=== PATIENT | female | born 1960 | race Caucasian/White ===

== ENCOUNTER 2016-10-22 07:31 | Day surgery (SDC) | payer OTHER ==
[~2016-10-22] VITALS: Ht 152.4 cm; Wt 86.0 kg
[2016-10-22] MEDS ORDERED: PRA20 PO (09:07)
[2016-10-22] MEDS ORDERED: LISI20TA11 PO (09:08)
[2016-10-22] MEDS ORDERED: CITA20TA6 PO (09:08)
[2016-10-22] MEDS ORDERED: PROPOFOL 20 ML ONE (09:08)
[2016-10-22] MEDS ORDERED: FENTAnyl 50 MCG/ML VIAL ONE (09:09)
[2016-10-22] MEDS ORDERED: MIDAZOLAM 1 MG/ML 2 ML INJ ONE (09:09)
[2016-10-22 09:10] VITALS: BP 162/69; PULSE 86; RESP 20
[2016-10-22 10:14] VITALS: BP 133/75; PULSE 75; RESP 20
--- NOTE | 2016-10-22 13:28 | GILP ---
DATE OF PROCEDURE: 10/22/2016 PROCEDURE: Colonoscopy with biopsy. INDICATION: The patient is a 55-year-old female undergoing this procedure for colon cancer screenin g. The risks of the procedure, related and unrelated complications, anesthetic risks, alternatives discussed and informed consent was obtained. DESCRIPTION OF PROCEDURE: The patient was brought to the GI lab, sedated by Dr. Christianson. After opti mum sedation, scope was passed with much ease into rectum, advanced through sigmoid, descending, tra nsverse colon all the way into cecum. Appendiceal orifice identified, peeped into terminal ileum wh ich was normal. The IC valve identified. Rest of the colon appeared normal. There were a few scat tered small mouth diverticula in the left side of the colon, very mild. Retroversion revealed inter nal hemorrhoids. There was edema and a diminutive polyp in the rectum. Surface was successfu lly removed by jumbo biopsy forceps, again hemorrhoids confirmed on antegrade examination. IMPRESSION: 1. Hemorrhoids mild. 2. Diminutive polyp in the rectum, successfully removed by jumbo biopsy forceps. 3. Mild diverticulosis. 4. Negative all the way into the cecum. 5. Clarity was good. 6. Cleanliness was good to adequate. PLAN: Stay on high fiber diet. Dictated By: DAVID ORTIZ/SONI Conf#: [id number] DID#: [id number]
== END 2016-10-22 10:13 | disposition home or self-care (01) ==
LOC: GIL 07:31
PROVIDERS: ATTEND Internal Medicine Gastroenterology
DX: K62.1 Rectal polyp (principal); K64.8 Other hemorrhoids; K57.90 Diverticulosis of intestine, part unspecified, without perforation or abscess without bleeding; I10 Essential (primary) hypertension; E11.9 Type 2 diabetes mellitus without complications
CPT/HCPCS: 45380; 82962; 88305; J2250; J3010; Z7610

== ENCOUNTER 2016-12-16 07:30 | Inpatient (IN) | payer OTHER ==
[2016-12-13 15:54] VITALS: Ht 149.9 cm; Wt 88.7 kg
[2016-12-16] VITALS (45 sets, daily range): BP systolic 97–135; BP diastolic 55–71; PULSE 66–113; RESP 12–18
[~2016-12-16] VITALS: Ht 149.9 cm; Wt 88.7 kg
[~2016-12-16 07:30] MED LIST: ACETAMINOPHEN 1000 MG/100 ML IVPB ONE; CITA20TA6 PO; LISI20TA11 PO; PRA20 PO
[2016-12-16] MEDS ORDERED: CEFAZOLIN 2 GM/50 ML (PMX) 50 ML IVPB SCH ×2 (08:00→16:30)
[2016-12-16] MEDS ORDERED: SOD CHLORIDE 0.9% 1,000 ML IV SCH (08:00)
[2016-12-16] MEDS ORDERED: LIDOCAINE 2% (SDV) 5 ML INJ ONE (13:28)
[2016-12-16] MEDS ORDERED: MIDAZOLAM 1 MG/ML 2 ML INJ ONE (13:28)
[2016-12-16] MEDS ORDERED: PROPOFOL 20 ML ONE ×2 (13:28→15:17)
[2016-12-16] MEDS ORDERED: CEFAZOLIN 1 GM INJ ONE (13:28)
[2016-12-16] MEDS ORDERED: SUCCINYLCHOLINE CHLORIDE 100 MG/5 ML SYG IV ONE (13:28)
[2016-12-16] MEDS ORDERED: FENTAnyl 50 MCG/ML VIAL ONE (13:28)
[2016-12-16 13:32] LABS: CALCIUM 9.4 mg/dl (8.4-10.2); CREATININE 0.46 mg/dl (0.44-1.00)
[2016-12-16] MEDS ORDERED: TRAZ50TA18 PO (13:32)
[2016-12-16] MEDS ORDERED: ERGO500037 PO (13:32)
[2016-12-16] MEDS ORDERED: ASPI81TA50 PO (13:32)
[2016-12-16] MEDS ORDERED: ZOLP5TAB6 PO (13:32)
[2016-12-16] MEDS ORDERED: METOCLOPRAMIDE 10 MG INJ ONE (14:24)
[2016-12-16] MEDS ORDERED: DEXAMETHASONE 4 MG/ML 1 ML INJ ONE (14:24)
[2016-12-16] MEDS ORDERED: ONDANSETRON 4 MG INJ ONE (14:24)
[2016-12-16] MEDS ORDERED: EPHEDrine SULFATE 50 MG/5 ML SYG ONE (14:56)
[2016-12-16] MEDS ORDERED: HYDROmorphONE 2 MG/ML SYG ONE (14:58)
[2016-12-16] MEDS ORDERED: FAMOTIDINE 20 MG INJ ONE (15:07)
[2016-12-16] MEDS ORDERED: BUPIVACAINE 0.25% (MPF) 30 ML INJ ONE (15:09)
[2016-12-16] MEDS ORDERED: BUPIVACAINE 0.25% (MPF) 30 ML INJ INJ ONE (15:10)
[2016-12-16] MEDS ORDERED: METOPROLOL 5 MG INJ ONE (15:16)
[2016-12-16] MEDS ORDERED: PROCHLORPERAZINE 10 MG INJ IV PRN (15:30)
[2016-12-16] MEDS ORDERED: LABETALOL HCL 20MG INJ IV PRN (15:30)
[2016-12-16] MEDS ORDERED: HYDROmorphONE (0.2 MG/ML) 10ML SYG IV PRN ×2 (15:30)
[2016-12-16] MEDS ORDERED: ONDANSETRON 4 MG INJ IV PRN ×2 (15:30→22:00)
[2016-12-16] MEDS ORDERED: DIPHENHYDRAMINE 50 MG INJ IV PRN (15:30)
[2016-12-16] MEDS ORDERED: hydrALAzine 20 MG INJ IV PRN ×2 (15:30→17:00)
[2016-12-16] MEDS ORDERED: MEPERIDINE 25 MG INJ IV PRN (15:30)
[2016-12-16] MEDS ORDERED: FENTAnyl 50 MCG/ML VIAL IV PRN (15:30)
[2016-12-16] MEDS: LACTATED RINGER'S 1,000 ML IV SCH ×2 (16:01→21:33)
[2016-12-16] MEDS ORDERED: morphine 2 MG INJ IV PRN (16:30)
--- NOTE | 2016-12-16 16:36 | OPR ---
DATE OF OPERATION: 12/16/2016 INDICATION: This is a 56-year-old female with a history of hyperparathyroidism was found to have on imaging a left lower parathyroid adenoma. She requests surgical excision of parathyroid adenoma. Risks, alternatives, benefits, and personnel were discussed with the patient. Patient expressed und erstanding and consents to the operation. PREOPERATIVE DIAGNOSIS: Hyperparathyroidism. POSTOPERATIVE DIAGNOSIS: Hyperparathyroidism. OPERATION PERFORMED: Left lower parathyroidectomy. SURGEON: Earle Story MD SPECIMEN: Left lower parathyroid. COMPLICATIONS: None. ANESTHESIA: General. PROCEDURE: The patient was taken to the OR and prepped and draped in the usual sterile fashion. Pickard rgical timeout was performed. IV antibiotics were given. Collar incision is made with a 15 blade. Dissection cautery was carried through the platysma. Strap muscles are split in the midline. Left middle thyroidal vein is ligated with handheld LigaSure. The left inferior pole was mobilized. Le ft lower parathyroid gland is identified. The pedicle is divided after ligating with 3-0 silk. Thi s is sent for specimen as intraoperative frozen, which came back as hypercellular parathyroid. Hemo stasis was achieved. The neck incision was irrigated with Valsalva maneuver 40 cm of water. There was no evidence of further bleeding. The strap muscles were reapproximated in the midline with inte rrupted 3-0 Vicryls. Platysma muscle is reapproximated with interrupted 3-0 Vicryl. Skin was close d using 3-0 Vicryl and running 4-0 Monocryl. Local anesthesia was injected. Dry dressings were aviva lied. Dictated By: EARLE KIDD/SONI Conf#: [id number] DID#: [id number]
[2016-12-16 16:53] LABS: ADD SCAN DIFF NO
[2016-12-16 16:54] LABS: BASOPHILS % 0.4 % (0.0-2.0); EOSINOPHILS # 0.1 10^3/ul (0.0-0.5); EOSINOPHILS % 1.3 % (0.0-7.0); HEMATOCRIT 39.1 % (37.0-47.0); HEMOGLOBIN 13.3 g/dl (12.0-16.0); LYMPHOCYTES # 1.8 10^3/ul (0.8-2.9); MEAN CORPUSCULAR HEMOGLOBIN 31.3 pg (29.0-33.0); MEAN PLATELET VOLUME 10.2 fl (7.4-10.4); MONOCYTE # 0.2 10^3/ul (0.3-0.9); MONOCYTES % 2.2 % (0.0-11.0); NEUTROPHIL # 5.6 10^3/ul (1.6-7.5); NEUTROPHILS % 72.6 % (39.0-77.0); PLATELET COUNT 167 10^3/UL (140-415); RED BLOOD COUNT 4.25 10^6/ul (4.20-5.40); RED CELL DISTRIBUTION WIDTH 11.6 % (11.5-14.5); WHITE BLOOD COUNT 7.7 10^3/ul (4.8-10.8)
[2016-12-16 17:06] LABS: ALBUMIN 3.6 g/dl (3.3-4.9)
[2016-12-16 17:09] LABS: BILIRUBIN,INDIRECT 0.1 mg/dl (0-1.1); BILIRUBIN,TOTAL 0.1 mg/dl (0.2-1.3)
[2016-12-16 17:10] LABS: ALBUMIN/GLOBULIN RATIO 1.33; TOTAL PROTEIN 6.3 g/dl (6.1-8.1)
[2016-12-16 17:12] LABS: CALCIUM 9.2 mg/dl (8.4-10.2); CREATININE 0.48 mg/dl (0.44-1.00); POTASSIUM 4.1 mmol/L (3.5-5.1)
[2016-12-16] MEDS ORDERED: GLUCOSE GEL 15 GRAM TUBE BUCCAL PRN (17:30)
[2016-12-16] MEDS ORDERED: GLUCOSE GEL 15 GRAM TUBE PO PRN ×2 (17:30)
[2016-12-16] MEDS ORDERED: GLUCAGON 1 MG INJ IM PRN (17:30)
[2016-12-16] MEDS ORDERED: DEXTROSE 50% 50 ML SYRINGE IV PRN ×2 (17:30)
--- NOTE | 2016-12-16 17:37 | HP ---
DATE OF ADMISSION: 12/16/2016 HISTORY OF PRESENT ILLNESS: The patient is a 56-year-old female with past medical history positive for hypertension, diet-controlled diabetes mellitus type 2, dyslipidemia, obesity. Patient also wit h history of hyperparathyroidism. Was found to have a left lower parathyroid adenoma on imaging roxana dies. Patient requests surgical incision of parathyroid adenoma. Patient was evaluated by Dr. Story in general surgery consultation. Patient was brought to the hospital and underwent left lower parat hyroidectomy. Postoperatively, patient experienced significant pain, and patient will be admitted f or further evaluation and management. PAST MEDICAL HISTORY: Positive for obesity, lower back pain, hyperthyroidism, hypertension, diabet es mellitus, dyslipidemia. PAST SURGICAL HISTORY: Patient denies having any surgeries in the past. FAMILY HISTORY: Positive for hypertension in patient's mother. SOCIAL HISTORY: Patient lives at home with her family. Patient denies any tobacco use. Denies any illicit drug use. Denies any alcohol use. ALLERGIES: NO KNOWN ALLERGIES. MEDICATIONS ON ADMISSION: 1. Aspirin. 2. Escitalopram. 3. Vitamin D. 4. Lisinopril. 5. Trazodone. 6. Ambien. 7. Pravastatin. REVIEW OF SYSTEMS: A 12-point review of systems is negative unless what mentioned in HPI. PHYSICAL ASSESSMENT GENERAL: Well-developed, obese female, currently lethargic but arousable. Patient is alert and evangelina ented to name and situation. VITAL SIGNS: Temperature is 97.9, pulse is 92, blood pressure 118/68, respiratory rate 17, oxygen s aturation is 96% on 8 liters mask. HEENT: Head is atraumatic, normocephalic. Pupils equal, round, and reactive to light and accommoda tion. Oral mucosa is pink and moist. NECK: Status post surgery with dry, clean, intact dressing at the base of the neck. CHEST: Lungs clear bilaterally. There is no rhonchi, wheezes, rales noted. CARDIOVASCULAR: Normal S1, S2. No murmurs, gallops, clicks, rubs noted. ABDOMEN: Protuberant, obese. Soft, nondistended, nontender. Bowel sounds present. No guarding, n o rebound tenderness. EXTREMITIES: There is no edema, clubbing, cyanosis. Pulses equal bilaterally 2+. SKIN: No rash, petechiae noted. NEUROLOGIC: Patient is awake, alert, and oriented to name and situation. Moves all extremities. LABORATORY DATA: Chemistry: Sodium is 142, potassium 4.0, chloride 108, carbon dioxide 25, anion g ap 15, BUN is 15, creatinine 0.46, glucose 73. Calcium is 9.4. CBC prior to surgery: White blood cell count was 5.5, hemoglobin is 13.2, hematocrit 39.1, platelets 204. IMAGING: Chest x-ray unremarkable examination. Chest x-ray was mild aortic tortuosity and no acute process, no significant change. ASSESSMENT AND PLAN: 1. Hyperparathyroidism, status post left lower partial thyroidectomy. We are going to admit alberto t to medical/surgical floor. Continue Zofran p.r.n. for nausea and morphine and Tylenol p.r.n. for pain. Monitor calcium level. Continue IV fluids. CBC and BMP tomorrow. Continue sequential compr ession device for deep venous thrombosis prophylaxis. 2. Hypertension. Continue to monitor blood pressure. Can resume patient on lisinopril. Continue hydralazine. p.r.n. for systolic blood pressure above 170. 3. Diabetes mellitus, diet controlled. Will continue to monitor blood sugar, with NovoLog mild sli ding scale coverage. Continue Pravastatin for peptic ulcer disease prophylaxis. Further recommenda tions based on clinical course. Plan of care discussed with Dr. De Leon. Dictated By: NATALIE MCKEON SHELL PRESS OPERATOR for NANDA DE LEON MD SR/NTS Conf#: [id number] DID#: [id number]
[2016-12-16] MEDS: INSULIN ASPART [NOVOLOG] 3 ML PEN SC SCH ×2 (18:00→21:00)
[2016-12-16] MEDS: CEFAZOLIN 2 GM/50 ML (PMX) 50 ML IVPB SCH (21:59)
[2016-12-17] MEDS: HYDROCODONE/APAP (5/325) TAB PO PRN ×2 (00:44→08:26)
[2016-12-17 00:45] VITALS: BP 94/52; PULSE 70; RESP 18
[2016-12-17] MEDS ORDERED: ACCUCHECK XX SCH (02:00)
[2016-12-17] MEDS: LACTATED RINGER'S 1,000 ML IV SCH ×2 (02:01→12:04)
[2016-12-17 05:13] LABS: ADD SCAN DIFF NO
[2016-12-17 05:21] LABS: BASOPHILS % 0.1 % (0.0-2.0); HEMATOCRIT 38.3 % (37.0-47.0); HEMOGLOBIN 12.7 g/dl (12.0-16.0); LYMPHOCYTES % 13.9 % (15.0-51.0); MEAN CORPUSCULAR HEMOGLOBIN 30.5 pg (29.0-33.0); MEAN CORPUSCULAR HGB CONC 33.2 g/dl (32.0-37.0); MEAN CORPUSCULAR VOLUME 92.1 fl (82.0-101.0); MEAN PLATELET VOLUME 10.5 fl (7.4-10.4); MONOCYTE # 0.4 10^3/ul (0.3-0.9); MONOCYTES % 5.4 % (0.0-11.0); NEUTROPHIL # 5.5 10^3/ul (1.6-7.5); NEUTROPHILS % 80.2 % (39.0-77.0); PLATELET COUNT 170 10^3/UL (140-415); RED BLOOD COUNT 4.16 10^6/ul (4.20-5.40); RED CELL DISTRIBUTION WIDTH 11.7 % (11.5-14.5); WHITE BLOOD COUNT 6.8 10^3/ul (4.8-10.8)
[2016-12-17 05:35] LABS: POTASSIUM 5.2 mmol/L (3.5-5.1)
[2016-12-17 05:41] LABS: ALBUMIN 3.4 g/dl (3.3-4.9)
[2016-12-17 05:42] LABS: ALBUMIN/GLOBULIN RATIO 1.36; BILIRUBIN,INDIRECT 0.2 mg/dl (0-1.1); BILIRUBIN,TOTAL 0.2 mg/dl (0.2-1.3); CALCIUM 8.7 mg/dl (8.4-10.2); CREATININE 0.49 mg/dl (0.44-1.00); TOTAL PROTEIN 5.9 g/dl (6.1-8.1)
[2016-12-17] MEDS: CEFAZOLIN 2 GM/50 ML (PMX) 50 ML IVPB SCH ×2 (06:02→14:05)
[2016-12-17] MEDS: INSULIN ASPART [NOVOLOG] 3 ML PEN SC SCH ×3 (07:50→17:23)
[2016-12-17] MEDS ORDERED: HYDROCODONE/APAP (5/325) TAB NGT PRN (08:00)
[2016-12-17] MEDS: ATORVASTATIN 10 MG TAB PO SCH ×2 (08:23→08:29)
[2016-12-17 08:49] VITALS: BP 102/53; RESP 18
[2016-12-17] MEDS ORDERED: LISINOPRIL 20 MG TAB PO SCH (09:00)
[2016-12-17] MEDS ORDERED: CITALOPRAM 20 MG TAB PO SCH (13:30)
[2016-12-17] MEDS ORDERED: ACETAMINOPHEN 325 MG TAB PO PRN (13:30)
--- NOTE | 2016-12-17 17:17 | PN ---
Date/Time of Note Date/Time of Note DATE: 12/17/16 TIME: 17:16 Assessment/Plan VTE Prophylaxis VTE Prophylaxis Intervention: SCD's Lines/Catheters IV Catheter Type (from Nrs): Peripheral IV Urinary Cath still in place: No Assessment/Plan Chief Complaint/Hosp Course s/p left lower parathyroidectomy Problems: Assessment/Plan dc home Subjective 24 Hr Interval Summary Free Text/Dictation doing well, voice normal, swallowing and breathing normal Exam/Review of Systems Vital Signs Vitals Vital Signs Date Time Temp Pulse Resp B/P Pulse Ox O2 Delivery O2 Flow Rate FiO2 12/17/16 08:49 98.4 64 18 102/53 95 12/17/16 00:45 Nasal Cannula 1.0 Intake and Output 12/16/16 12/16/16 12/17/16 15:00 23:00 07:00 Intake Total 850 ml 1070 ml Output Total 15 ml 900 ml Balance 835 ml 170 ml Exam clean intact Results Result Diagram: 12/17/16 0440 12/17/16 0440 Results 24 hrs Laboratory Tests Test 12/16/16 21:32 12/17/16 04:40 12/17/16 08:18 12/17/16 12:03 Bedside Glucose 167 102 128 Alanine Aminotransferase (ALT/SGPT) 28 Albumin 3.4 Albumin/Globulin Ratio 1.36 Alkaline Phosphatase 53 Anion Gap 13 Aspartate Amino Transf (AST/SGOT) 22 Basophils # 0.0 Basophils % 0.1 Blood Urea Nitrogen 12 Calcium Level 8.7 Carbon Dioxide Level 28 Chloride Level 107 Creatinine 0.49 Direct Bilirubin 0.00 Eosinophils # 0.0 Eosinophils % 0.0 Globulin 2.50 Glucose Level 112 Hematocrit 38.3 Hemoglobin 12.7 Indirect Bilirubin 0.2 Lymphocytes # 1.0 Lymphocytes % 13.9 L Mean Corpuscular Hemoglobin 30.5 Mean Corpuscular Hemoglobin Concent 33.2 Mean Corpuscular Volume 92.1 Mean Platelet Volume 10.5 H Monocytes # 0.4 Monocytes % 5.4 Neutrophils # 5.5 Neutrophils % 80.2 H Nucleated Red Blood Cells # 0.0 Nucleated Red Blood Cells % 0.0 Parathyroid Hormone (Intact) Platelet Count 170 Potassium Level 5.2 H Red Blood Count 4.16 L Red Cell Distribution Width 11.7 Sodium Level 143 Total Bilirubin 0.2 Total Protein 5.9 L White Blood Count 6.8 Medications Medications Current Medications Morphine Sulfate (morphine) 2 mg Q2H PRN IV PAIN LEVEL 6-10; Start 12/16/16 at 16:30 Acetaminophen/ Hydrocodone Bitart 1 tab 1 tab Q6H PRN PO PAIN LEVEL 6-10 Last administered on 12/17/16 08:26; Admin Dose 1 TAB; Start 12/16/16 at 16:30 Lactated Ringer's (Lr) 1,000 ml @ 100 mls/hr Q10H IV Last administered on 12/17 12:04; Admin Dose 100 MLS/HR; Start 12/16/16 at 16:01 Lisinopril (Zestril) 20 mg DAILY PO ; Start 12/17/16 at 09:00 Atorvastatin Calcium (Lipitor) 10 mg DAILY PO ; Start 12/17/16 at 09:00; Stop at 21:00 Diagnostic Test (Pha) (Accucheck) 1 ea 02 XX ; Start 12/17/16 at 02:00 Hydralazine HCl (Apresoline) 10 mg Q6H PRN IV SBP>170; Start 12/16/16 at 17:00 Acetaminophen/ Hydrocodone Bitart ([place] (5/325)) 1 tab Q4H PRN NGT PAIN LEVEL 1-5; Start 12/17/16 at 08:00 Miscellaneous Information 1 ea NOTE XX ; Start 12/16/16 at 17:30 Glucose (Glutose) 15 gm Q15M PRN PO DECREASED GLUCOSE; Start 12/16/16 at 17:30 Glucose (Glutose) 22.5 gm Q15M PRN PO DECREASED GLUCOSE; Start 12/16/16 at 17: 30 Dextrose (D50w Syringe) 25 ml Q15M PRN IV DECREASED GLUCOSE; Start 12/16/16 at 17:30 Dextrose (D50w Syringe) 50 ml Q15M PRN IV DECREASED GLUCOSE; Start 12/16/16 at 17:30 Glucagon (Glucagen) 1 mg Q15M PRN IM DECREASED GLUCOSE; Start 12/16/16 at 17:30 Glucose 15 gm 15 gm Q15M PRN BUCCAL DECREASED GLUCOSE; Start 12/16/16 at 17:30 Cefazolin Sodium/ Dextrose (Ancef 2 Gm/50 ml (Pmx)) 50 ml @ 100 mls/hr Q8H IVPB Last administered on 12/17/16 14:05; Admin Dose 100 MLS/HR; Start at 22:30 Ondansetron HCl (Zofran Inj) 4 mg Q4H PRN IV NAUSEA AND/OR VOMITING Last administered on 12/16/16 21:58; Admin Dose 4 MG; Start 12/16/16 at 22:00 Acetaminophen (Tylenol Tab) 650 mg Q6H PRN PO PAIN AND OR ELEVATED TEMP Last administered on 12/17/16 14:04; Admin Dose 650 MG; Start 12/17/16 at 13:30 Atorvastatin Calcium (Lipitor) 10 mg HS PO ; Start 12/17/16 at 21:00 Citalopram Hydrobromide (Celexa) 20 mg DAILY PO Last administered on 12/17/16 14:04; Admin Dose 20 MG; Start 12/17/16 at 13:30 Remedios HARRINGTON Dec 17, 2016 17:17
[2016-12-17] MEDS ORDERED: NA POLYST SULFON 15 GM/60 ML BTL PO ONE (18:00)
[2016-12-17] MEDS ORDERED: HYDR-3498 NGT (19:02)
[2016-12-17] MEDS ORDERED: ATORVASTATIN 10 MG TAB PO SCH (21:00)
== END 2016-12-17 20:10 | disposition home or self-care (01) | DRG 627 ==
LOC: INTOOBSV 11:34 → REC 11:34 → MS1 20:20 → OBSVTOIN 12-17 13:04
PROVIDERS: ADMIT Internal Medicine; ATTEND Surgery
PROC: 0GBP0ZZ Excision of Left Inferior Parathyroid Gland, Open Approach (ICD-10-PCS; principal; 2016-12-16 07:30)
DX: D35.1 Benign neoplasm of parathyroid gland (principal); I10 Essential (primary) hypertension; E21.3 Hyperparathyroidism, unspecified; E78.5 Hyperlipidemia, unspecified; E11.9 Type 2 diabetes mellitus without complications; F32.9 Major depressive disorder, single episode, unspecified; F41.9 Anxiety disorder, unspecified; E66.9 Obesity, unspecified; Z68.39 Body mass index [BMI] 39.0-39.9, adult; Z79.82 Long term (current) use of aspirin
CPT/HCPCS: 80048; 80053; 82962; 83970; 85025; 88305; 88331; 99217; G0378; J0131; J0330; J0690; J1100; J1170; J1815; J2250; J2405; J2765; J3010; J7030; J7120

== ENCOUNTER 2017-01-23 05:53 | Observation (INO) | payer OTHER ==
[2017-01-22 09:36] VITALS: BMI 48.0
[~2017-01-23] VITALS: Ht 134.6 cm; Wt 87.8 kg
[2017-01-23] VITALS (25 sets, daily range): BP systolic 100–140; BP diastolic 47–76; PULSE 63–82; RESP 11–22; Ht 134.6 cm; Wt 87.8 kg
[~2017-01-23 05:53] MED LIST changes: -ACETAMINOPHEN 1000 MG/100 ML IVPB ONE; +ASPI81TA50 PO; +CEFAZOLIN 2 GM/50 ML (PMX) 50 ML IVPB ONE; +ERGO500037 PO; +HYDR-3498 NGT; -PRA20 PO; +PRAV20TA2 PO; +TRAZ50TA18 PO; +ZOLP5TAB7 PO
--- NOTE | 2017-01-23 06:36 | PREOPHP ---
DATE OF ADMISSION: 01/23/2017 The patient is coming on the for a surgical procedure. HISTORY OF PRESENT ILLNESS: This is a 56-year-old female, 6, para 6, abortions 0. This pat ient had a history of a tubal ligation and weight loss of 100 pounds, dieting on her own and she als o has abdominal sagging to her thighs with frequent yeast infections. She suffers also from inconti nence and mixed incontinence with Valsalva maneuver and urgency. The patient has been having pelvic pressure to urinate and to have a bowel movement. She also has a hard time with constipation. She loses urine constantly. She wears a pad on a daily basis and she is constantly trying to move her bowels daily due to constipation. She is not sexually active. At this time, the patient has been advised for a vaginal A and P repair with a sling and graft. PAST MEDICAL HISTORY: She has a history of uncontrolled diabetes with diet and hypertension. ALLERGIES: SHE HAS NO ALLERGIES. MEDICATIONS The patient is on: 1. Lisinopril 2. Pravastatin. 3. Citalopram. 4. Zolpidem. FAMILY HISTORY: Unremarkable. REVIEW OF SYSTEMS: Negative for cardiovascular disease except for hypertension that is controlled. No history of lung disease. No history of GI disease, except for constipation. No urological prob lems. No neurological problems, orthopedic problems. She is a diabetic, diet-controlled, and she h as a thyroid problem that has not been treated so far. PHYSICAL EXAMINATION GENERAL APPEARANCE: Good. VITAL SIGNS: Stable. Blood pressure 140/80, pulse is 80, she is afebrile, she weighs 193. HEAD AND NECK: Normal. BREASTS: Soft, nontender; no masses. CHEST: Clear. HEART: Normal sinus rhythm. ABDOMEN: Soft, nontender. No masses. Excessive skin and fat tissue up to her thighs. She will ne ed an abdominal lipectomy after this procedure. PELVIC: Atrophic and vaginal lining, uterus normal size and non-prolapsed. The bladder and rectum prolapsed grade III to IV. EXTREMITIES: Normal. DIAGNOSES 1. 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 2. Mixed incontinence. 3. Large rectocele. 4. Constipation. 5. Diet-controlled diabetes. 6. Controlled hypertension. 7. Thyroid disease ____. 8. Briana-abdominal mass, large fat/skin protrusion. PLAN: The patient has been advised for an A and P repair, sling and a graft. She has been explaine d on the procedure. She has PMS advised of the possible risks and possible complications of the pro cedure with her alternatives and options. Written information was provided. She had no more questi ons and agreed to go ahead with the procedure with full understanding and no more questions. Also, information was given about the graft and the sling that were going to be used on her and she unders tood all of the possible complications and she agreed to have the procedure, and she decided that th is is the best approach for her. She had no more questions and agreed to go ahead with the procedur e. Dictated By: AKBAR BELLA/SONI Conf#: [id number] DID#: [id number]
[2017-01-23] MEDS ORDERED: LIDOCAINE 1%/EPI (MDV) 20 ML INJ ONE (06:48)
[2017-01-23] MEDS ORDERED: THROMBIN 5000 UNIT VIAL ONE (06:49)
[2017-01-23] MEDS ORDERED: ROCURONIUM 50 MG INJ ONE (07:00)
[2017-01-23] MEDS ORDERED: SUCCINYLCHOLINE CHLORIDE 100 MG/5 ML SYG IV ONE (07:00)
[2017-01-23] MEDS ORDERED: PROPOFOL 20 ML ONE (07:00)
[2017-01-23] MEDS ORDERED: FENTAnyl 50 MCG/ML VIAL ONE (07:01)
[2017-01-23] MEDS ORDERED: ONDANSETRON 4 MG INJ ONE (07:01)
[2017-01-23] MEDS ORDERED: CEFAZOLIN 1 GM INJ ONE (07:01)
[2017-01-23] MEDS ORDERED: METOCLOPRAMIDE 10 MG INJ ONE (07:01)
[2017-01-23] MEDS ORDERED: METHYLENE BLUE 1% 10 ML INJ ONE (07:03)
[2017-01-23] MEDS ORDERED: LABETALOL HCL 20MG INJ IV PRN (08:00)
[2017-01-23] MEDS ORDERED: OXYCODONE/ACETAMINOPHEN (5/325) TAB PO PRN ×2 (08:00)
[2017-01-23] MEDS ORDERED: hydrALAzine 20 MG INJ IV PRN (08:00)
[2017-01-23] MEDS ORDERED: HYDROmorphONE (0.2 MG/ML) 10ML SYG IV PRN ×3 (08:00)
[2017-01-23] MEDS ORDERED: MEPERIDINE 25 MG INJ IV PRN (08:00)
[2017-01-23] MEDS ORDERED: FENTAnyl 50 MCG/ML VIAL IV PRN ×2 (08:00)
[2017-01-23] MEDS ORDERED: ONDANSETRON 4 MG INJ IV PRN ×2 (08:00)
[2017-01-23] MEDS ORDERED: HYDROmorphONE 0.2 MG/ML PCA IV SCH ×3 (08:00→16:30)
[2017-01-23] MEDS ORDERED: DIPHENHYDRAMINE 50 MG INJ IV PRN (08:00)
[2017-01-23] MEDS ORDERED: NALOXONE (0.4 MG/ML) INJ IV PRN (08:00)
[2017-01-23] MEDS ORDERED: LIDOCAINE 1%/EPI 30 ML INJ ONE (09:15)
[2017-01-23] MEDS: LACTATED RINGER'S 1,000 ML IV SCH ×3 (09:55→18:37)
[2017-01-23] MEDS ORDERED: ZOLPIDEM 5 MG TAB PO PRN (10:00)
[2017-01-23] MEDS ORDERED: HYDROCODONE/APAP (5/325) TAB PO PRN ×2 (10:00)
[2017-01-23] MEDS ORDERED: HYDROmorphONE 1 MG/ML SYG IV PRN (10:00)
[2017-01-23] MEDS ORDERED: BISACODYL (EC) 5 MG TAB PO PRN (10:00)
[2017-01-23] MEDS ORDERED: DIPHENHYDRAMINE 50 MG CAP PO PRN (10:00)
--- NOTE | 2017-01-23 10:15 | OPR ---
Date/Time of Note Date/Time of Note DATE: 01/23/17 TIME: 10:12 Operative Report Procedure Date: Jan 23, 2017 Preoperative Diagnosis LARGE CYSTOURETHROCELE GRADE 4 LARGE RECTOCELE MIXED INCONTINENCE HYPERTENSION DIET CONTROL DIABETES Postoperative Diagnosis SAME Surgeon: AKBAR ROMO MD facility assistant: ASHVIN TAN Anesthesia: general Anesthesiologist: KAR KEATING MD Estimated Blood Loss: 0 - 10 ml's Complications: None Pt Condition Post Procedure: stable Disposition: PACU AKBAR ROMO MD Jan 23, 2017 10:14
--- NOTE | 2017-01-23 11:08 | OPR ---
DATE OF OPERATION: 01/23/2017 PREOPERATIVE DIAGNOSES: 1. Large cystourethrocele, grade 4. 2. Mixed incontinence. 3. Large rectocele. 4. Constipation. 5. Diet-controlled diabetes. 6. Hypertension. POSTOPERATIVE DIAGNOSES: 1. Large cystourethrocele, grade 4. 2. Mixed incontinence. 3. Large rectocele. 4. Constipation. 5. Diet-controlled diabetes. 6. Hypertension. PROCEDURE: Anterior and posterior colporrhaphy, Obtryx sling, ACell and Xenform graft. SURGEON: Akbar Justice MD APPLIANCE ADJUSTER: Dipak Salas MD ANESTHESIOLOGIST: Chandan Cisse MD ANESTHESIA: General. DESCRIPTION OF PROCEDURE: The patient was given general anesthesia, placed in the lithotomy positio n. The perineal and vaginal area were prepped and draped. A Reyez catheter was placed in the bladd er. A midline self-retaining retractor was placed. A midline incision was made 2 cm below the uret hral meatus all the way up to almost the cervix that was not prolapsed. A vertical incision was mad e with the help of Xylocaine and epinephrine that was injected underneath, the cystocele from the anterior vaginal mucosa. The dissection was done with Metzenbaum, digitally and the dissec tion was carried to the side of the pelvis to the internal obturator muscle on both sides. Plicatio n of the bladder was done with a 2-0 Vicryl suture with a pursestring suture around it and imbedding the body of the bladder with Endo Stitch. The location of the needles was done digitally 2 cm belo w the adductor longus tendon. A chandan was done on the skin, and the area was parallel to the clitori s. With a small knife, a little rent of the skin was done and the needle was passed through, perfo rating the obturator membrane and retrieving the needle paraurethrally. The sling was attached to b oth needles and the arms of the sling were passed through the obturator canal by retrieving the need le back. The approximation of the sling was done to the mid urethral area after applying a piece of ACell and a piece of Xenform graft on the urethral area before the sling was approximated to the bl adder and this was between the bladder. The graft was left between the bladder and the sling. On t he other side of the sling, which was only applied and not pulled, a piece of Xenform graft and ACel l graft was also left surgery. Surgiflo was placed on both corners for control of bleeding and the vagina was closed without trimming the vagina with interrupted sutures with 2-0 Vicryl. The arms of the sling were trimmed at the level of the skin and Dermabond was used on top of it. The posterior rectocele was now started by making a triangular incision at the perineum. A midline incision was made all the way up to about 7 cm of the vaginal canal, the rectocele from t he posterior vaginal mucosa, using the same solution Xylocaine and epinephrine 1%. The rectocele wa s reduced with interrupted sutures with 2-0 Vicryl. A remnant of vaginal mucosa was trimmed and the vagina was closed with interrupted sutures with 2-0 Vicryl. At the level of the perineum, the leva tor ani muscle was tucked from one side to the other side, obtaining a good lifting of the perineum. The rest of the perineum was closed with 2-0 Vicryl and 3-0 Vicryl as a regular episiotomy. Xerof orm gauze was left in the vagina. Clear urine was draining from the bladder. The patient left the OR awake and stable. Sponge counts and instrument counts were correct. Needle counts were correct and intravenous antibiotics were given for prophylaxis. Dictated By: AKBAR BELLA/SONI Conf#: [id number] DID#: [id number]
[2017-01-23] MEDS: METOCLOPRAMIDE 10 MG TAB PO SCH ×3 (12:59→23:57)
[2017-01-23] MEDS: KETOROLAC 30 MG INJ IV SCH ×3 (12:59→23:58)
[2017-01-23 13:50] LABS: ADD UMIC YES; URINE BILIRUBIN (Dip) NEGATIVE (NEGATIVE); URINE BLOOD (Dip) TRACE (NEGATIVE); URINE COLOR LT. YELLOW (YELLOW); URINE GLUCOSE (Dip) NEGATIVE (NEGATIVE); URINE KETONES (Dip) TRACE (NEGATIVE); URINE LEUKOCYTE ESTERASE (Dip) NEGATIVE (NEGATIVE); URINE NITRITE (Dip) NEGATIVE (NEGATIVE); URINE TOTAL PROTEIN (Dip) NEGATIVE (NEGATIVE); URINE UROBILINOGEN (Dip) 0.2 E.U./dL (0.1-1.0)
[2017-01-23 14:15] LABS: BACTERIA,URINE RARE
[2017-01-23] MEDS: CEFAZOLIN 1 GM/50 ML (PMX) 50 ML IVPB SCH ×2 (15:02→22:02)
[2017-01-24] MEDS: LACTATED RINGER'S 1,000 ML IV SCH ×2 (05:28→09:55)
[2017-01-24] MEDS: METOCLOPRAMIDE 10 MG TAB PO SCH ×2 (06:25→12:19)
[2017-01-24] MEDS: KETOROLAC 30 MG INJ IV SCH ×2 (06:25→12:20)
[2017-01-24] MEDS: CEFAZOLIN 1 GM/50 ML (PMX) 50 ML IVPB SCH (06:25)
[2017-01-24 07:20] VITALS: BP 147/70; RESP 18
[2017-01-24] MEDS ORDERED: LISINOPRIL 20 MG TAB PO SCH (09:00)
[2017-01-24] MEDS ORDERED: CITALOPRAM 20 MG TAB PO SCH (09:00)
--- NOTE | 2017-01-24 09:31 | RADRPT ---
Vent Rate: 62 bpm RR Interval: 0 msec ID Interval: 180 msec QRS Duration: 88 msec QT Interval: 414 msec QTC Interval: 420 msec P-R-T [place]: 32 - 41 - 52 degrees Normal sinus rhythm Normal ECG Electronically Signed By: Omi Adan [id number]
[2017-01-24 10:48] LABS: ADD SCAN DIFF NO
[2017-01-24 11:01] LABS: BASOPHILS % 0.3 % (0.0-2.0); EOSINOPHILS % 0.4 % (0.0-7.0); HEMATOCRIT 34.5 % (37.0-47.0); HEMOGLOBIN 11.6 g/dl (12.0-16.0); LYMPHOCYTES # 1.4 10^3/ul (0.8-2.9); LYMPHOCYTES % 17.1 % (15.0-51.0); MEAN CORPUSCULAR HEMOGLOBIN 30.9 pg (29.0-33.0); MEAN CORPUSCULAR HGB CONC 33.6 g/dl (32.0-37.0); MONOCYTE # 0.7 10^3/ul (0.3-0.9); MONOCYTES % 8.5 % (0.0-11.0); NEUTROPHIL # 5.8 10^3/ul (1.6-7.5); NEUTROPHILS % 73.2 % (39.0-77.0); PLATELET COUNT 137 10^3/UL (140-415); RED BLOOD COUNT 3.75 10^6/ul (4.20-5.40); RED CELL DISTRIBUTION WIDTH 11.3 % (11.5-14.5); WHITE BLOOD COUNT 7.9 10^3/ul (4.8-10.8)
[2017-01-24 11:04] LABS: CREATININE 0.55 mg/dl (0.44-1.00); POTASSIUM 4.4 mmol/L (3.5-5.1)
--- NOTE | 2017-01-24 13:40 | PD.PPDC ---
SPA DIRECTOR Discharge Instruction Condition Patient Condition: Good Diet Diet: Resume Regular Diet Activity/Restrictions Activity: Bedrest May be up to bathroom May be up for meals May Shower Restrictions: No Exercising No Lifting No Driving Minimize Walking Minimize Stair-climbing No Sexual Activity Nothing in the Vagina No [place] No Tampons, douche Follow-up Follow-up with Physician: 2, Week/Weeks Return to clinic for VOLCANOLOGY PROFESSOR Instructions: Fever greater than 101 Chills Worsening abdominal pain Excessive Vaginal Bleeding ASHVIN TAN MD Jan 24, 2017 13:40
--- NOTE | 2017-01-24 13:45 | DS ---
Date/Time of Note Date/Time of Note DATE: 01/24/17 TIME: 13:42 Discharge Summary Admission/Discharge Info Admit Date/Time Jan 23, 2017 at 09:55 Discharge Date/Time January Final Diagnosis Mixed urinary incontinence, cystocele, rectocele. Patient Condition: Good Procedures Anterior and posterior colporrhaphy, bladder sling Hospital Course Pt had the procedure on the day of admission without complications. The following day the vaginal packing and the escudero catheter were removed and the pt was able to void without a problem and was therefore deemed ready for discharge. She is having minimal discomfort. Home Meds Reported Medications Zolpidem Tartrate* (Zolpidem Tartrate*) 5 Mg Tablet, 1 TAB PO QHS, #30 12/16/16 Ergocalciferol (Vitamin D2) (VITAMIN D2) 50,000 Unit Capsule, 1 CAP PO DAILY, # 12 12/16/16 Citalopram Hydrobromide* (Citalopram Hydrobromide*) 20 Mg Tablet, 2 TAB PO DAILY , #30 TAB 10/22/16 Lisinopril* (Lisinopril*) 20 Mg Tablet, 20 MG PO DAILY, #30 TAB 10/22/16 Pravastatin Sodium (Pravastatin Sodium) 20 Mg Tablet, 20 MG PO DAILY, TAB 10/22/16 Discontinued Reported Medications Aspirin (Aspir-Low) 81 Mg Tablet., 1 TAB PO DAILY, #30 12/16/16 Trazodone Hcl* (Desyrel*) 50 Mg Tab, 1 TAB PO QHS, #30 12/16/16 Discontinued Scripts Hydrocodone Bit-Acetaminophen (Hydrocodone Bit-APAP) 5-325MG Tablet, 1 TAB NGT Q4H Y for PAIN LEVEL 1-5, #20 TAB Prov:NATALIE MCKEON 12/17/16 Follow-up Plan Return to see Dr Justice in 2 weeks. Pending Labs Laboratory Tests Test 01/24/17 10:30 01/24/17 10:35 White Blood Count 7.910^3/ul (4.8-10.8) Red Blood Count 3.7510^6/ul (4.20-5.40) Hemoglobin 11.6g/dl (12.0-16.0) Hematocrit 34.5% (37.0-47.0) Mean Corpuscular Volume 92.0fl (82.0-101.0) Mean Corpuscular Hemoglobin 30.9pg (29.0-33.0) Mean Corpuscular Hemoglobin Concent 33.6g/dl (32.0-37.0) Red Cell Distribution Width 11.3% (11.5-14.5) Platelet Count 11910^3/UL (140-415) Mean Platelet Volume 10.0fl (7.4-10.4) Neutrophils % 73.2% (39.0-77.0) Lymphocytes % 17.1% (15.0-51.0) Monocytes % 8.5% (0.0-11.0) Eosinophils % 0.4% (0.0-7.0) Basophils % 0.3% (0.0-2.0) Nucleated Red Blood Cells % 0.0/100WBC (0.0-0.0) Neutrophils # 5.810^3/ul (1.6-7.5) Lymphocytes # 1.410^3/ul (0.8-2.9) Monocytes # 0.710^3/ul (0.3-0.9) Eosinophils # 0.010^3/ul (0.0-0.5) Basophils # 0.010^3/ul (0.0-0.1) Nucleated Red Blood Cells # 0.010^3/ul (0.0-0.0) Sodium Level 137mmol/L (135-144) Potassium Level 4.4mmol/L (3.5-5.1) Chloride Level 109mmol/L (97-110) Carbon Dioxide Level 28mmol/L (21-31) Anion Gap 4 (8-16) Blood Urea Nitrogen 9mg/dl (7-20) Creatinine 0.55mg/dl (0.44-1.00) ASHVIN TAN MD Jan 24, 2017 13:45
== END 2017-01-24 15:50 | disposition home or self-care (01) ==
LOC: SDS 05:53 → OBV 09:55 → PP2 11:58
PROVIDERS: ADMIT Obstetrics & Gynecology; ATTEND Obstetrics & Gynecology
DX: N81.10 Cystocele, unspecified (principal); N39.46 Mixed incontinence; N81.6 Rectocele; K59.00 Constipation, unspecified; E11.9 Type 2 diabetes mellitus without complications; I10 Essential (primary) hypertension; E78.5 Hyperlipidemia, unspecified; E66.01 Morbid (severe) obesity due to excess calories; Z68.42 Body mass index [BMI] 45.0-49.9, adult; E03.9 Hypothyroidism, unspecified
CPT/HCPCS: 57260; 57288; 80051; 81001; 82565; 84520; 85025; 87086; 88305; 93005; C1771; C1781; J0330; J0690; J1170; J1885; J2405; J2765; J3010; J7120; Q4166; Z7500; Z7512; Z7610; 81003; 96365; 96366; 96375; 96376; G0378